=== PATIENT | male | born 1990 | race African-American/Black ===

== ENCOUNTER 2016-09-13 19:40 | Emergency (ER) | payer SELFPAY ==
--- NOTE | 2016-09-13 20:44 | RAD ---
PA AND LATERAL VIEWS OF CHEST: 09/13/2016 HISTORY: Cough for several years. FINDINGS: Two views of the chest demonstrate the lungs to be well-aerated. No evidence of active intrathoraci c disease seen. No evidence of effusions, pneumonia, or pneumothorax seen. IMPRESSION: Unremarkable two views chest. POS: [facility]
== END 2016-09-13 20:37 | disposition home or self-care (01) ==
LOC: NAV ERS 19:40
DX: J42 Unspecified chronic bronchitis (principal); F17.210 Nicotine dependence, cigarettes, uncomplicated
CPT/HCPCS: 71020

== ENCOUNTER 2016-11-24 22:13 | Emergency (ER) | payer SELFPAY ==
[2016-11-24] MEDS ORDERED: Amoxicillin/Potassium Clav 875 MG TAB ONE (22:24)
[2016-11-24] MEDS ORDERED: Ibuprofen 800 MG TAB ONE (22:25)
[2016-11-24] MEDS ORDERED: AMOXicillin 250 MG CAP ONE (22:25)
== END 2016-11-24 22:31 | disposition home or self-care (01) ==
LOC: NAV ERS 22:13
DX: H66.91 Otitis media, unspecified, right ear (principal); F17.210 Nicotine dependence, cigarettes, uncomplicated
CPT/HCPCS: 99282

== ENCOUNTER 2017-04-15 19:43 | Emergency (ER) | payer SELFPAY ==
[2017-04-15] MEDS ORDERED: Fluorescein Opthalmic Strip ONE (19:54)
[2017-04-15] MEDS ORDERED: Erythromycin Base 0.5% Oint 1 GM TUBE ONE (20:32)
[2017-04-15] MEDS ORDERED: Ibuprofen 800 MG TAB ONE (20:54)
== END 2017-04-15 21:05 | disposition home or self-care (01) ==
LOC: NAV ERS 19:43
DX: T15.02XA Foreign body in cornea, left eye, initial encounter (principal); I10 Essential (primary) hypertension; G62.9 Polyneuropathy, unspecified; F17.210 Nicotine dependence, cigarettes, uncomplicated
CPT/HCPCS: 65220

== ENCOUNTER 2017-08-17 01:52 | Emergency (ER) | payer SELFPAY | END 2017-08-17 02:10 | LOC: NAV ERS 01:52 | DX: F10.129 Alcohol abuse with intoxication, unspecified (principal); F17.210 Nicotine dependence, cigarettes, uncomplicated | CPT/HCPCS: 99284 ==

== ENCOUNTER 2017-08-19 18:35 | Emergency (ER) | payer SELFPAY ==
--- NOTE | 2017-08-19 19:20 | CT ---
CT HEAD WITHOUT CONTRAST: Date: 08/19/17 Multiple axial tomograms obtained through the head without IV contrast. HISTORY: Fall with injury to head and face. FINDINGS: Ventricles have normal size and position. No evidence of intracranial hemorrhage. No mass or infarct seen. Sinuses and mastoids are aerated. IMPRESSION: No acute findings. POS: [facility]
[2017-08-19 19:38] LABS: Bilirubin Negative (Negative); Blood, Urine Negative (Negative); Clarity Clear (Clear); Glucose, Urine (Dipstick) Negative (Negative); Leukocyte Negative (Negative); Nitrite Negative (Negative); Protein, Urine (Dipstick) Negative (Neg-Trace)
[2017-08-19 19:42] LABS: ALT (SGPT) 30 U/L (8-55); AST (SGOT) 23 U/L (5-34); Albumin 4.2 g/dL (3.5-5.0); Alcohol Less than 10 mg/dL (Less than 10); Alkaline Phosphatase 82 U/L (40-150); Anion Gap 14 mmol/L (10-20); BUN (Urea Nitrogen) 8 mg/dL (8.9-20.6); Calc. Creatinine Clearance 0 mL/min (70-130); Calcium 9.8 mg/dL (7.8-10.44); Carbon Dioxide 23 mmol/L (22-29); Chloride 108 mmol/L (98-107); Estimated GFR-MDRD Greater than 90; Globulin 3.1 g/dL (2.4-3.5); Glucose 103 mg/dL (70-105); Potassium 3.7 mmol/L (3.5-5.1); Protein, Total 7.3 g/dL (6.0-8.3); Sodium 141 mmol/L (136-145)
[2017-08-19 19:43] LABS: CKMB 1.6 ng/mL (0-6.6); Hemoglobin 15.1 g/dL (14.0-18.0); Mean Corpuscular HGB CONC 31.2 g/dL (32.0-36.0); Mean Corpuscular Hemoglobin 27.3 pg (27.0-31.0); Mean Corpuscular Volume 87.4 fl (80.0-94.0); Mean Platelet Volume 9.3 fL (7.4-10.4); Platelet Count 189 thou/uL (130-400); RBC Distribution Width 12.2 % (11.5-14.5); Red Blood Cell (RBC) Count 5.53 mill/uL (4.70-6.10); Troponin I Less than 0.010 ng/mL (< 0.028); White Blood Cell (WBC) Count 8.7 thou/uL (4.8-10.8)
[2017-08-19 19:47] LABS: THC/Cannabinoid Screen Detected (NotDetected)
[2017-08-19 19:47] LABS: Eosinophils 7 % (0-10); Lymphocytes 20 % (21-51); MDiff Complete? YES; Monocytes 6 % (0-10); Neutrophil 67 % (42-75); PLT Morphology Comment Appears Adequate; RBC Morphology Normal
[2017-08-19 19:48] LABS: Amphetamine Not Detected (NotDetected); Barbiturates Screen Not Detected (NotDetected); Benzodiazepine Screen Not Detected (NotDetected); Cocaine Metabolite Screen Not Detected (NotDetected); Medtox Control Line Valid? VALID (VALID); Methadone Not Detected (NotDetected); Methamphetamine Not Detected (NotDetected); Opiate Screen Not Detected (NotDetected); Oxycodone Screen Not Detected (NotDetected); Phencyclidine (PCP) Detected (NotDetected); Tricyclic Screen Not Detected (NotDetected)
[2017-08-19] MEDS ORDERED: Ibuprofen 800 MG TAB ONE (20:28)
== END 2017-08-19 20:57 | disposition short-term general hospital (02) ==
LOC: NAV ERS 18:35
DX: S02.5XXA Fracture of tooth (traumatic), initial encounter for closed fracture (principal); R41.82 Altered mental status, unspecified; F17.210 Nicotine dependence, cigarettes, uncomplicated; F12.20 Cannabis dependence, uncomplicated; W19.XXXA Unspecified fall, initial encounter
CPT/HCPCS: 70450; 80053; 80306; 80307; 81003; 82553; 84484; 85025; 93005

== ENCOUNTER 2018-03-15 03:42 | Emergency (ER) | payer SELFPAY ==
[2018-03-15 04:11] LABS: Bilirubin Negative (Negative); Blood, Urine Negative (Negative); Clarity Clear (Clear); Glucose, Urine (Dipstick) Negative (Negative); Leukocyte Negative (Negative); Nitrite Negative (Negative); Protein, Urine (Dipstick) 30 mg/dL (Neg-Trace); Specific Gravity, Urine 1.025 (1.005-1.030); Urobilinogen 0.2 mg/dL (0.2-1.0)
[2018-03-15 04:16] LABS: Bacteria/HPF None Seen HPF (None Seen); RBC/HPF None Seen HPF (0-3); Squamous Epithelial None Seen HPF (0-3); WBC/HPF 0-3 HPF (0-3)
== END 2018-03-15 04:25 | disposition home or self-care (01) ==
LOC: NAV ERS 03:42
DX: R10.30 Lower abdominal pain, unspecified (principal); R80.9 Proteinuria, unspecified; I10 Essential (primary) hypertension; F17.210 Nicotine dependence, cigarettes, uncomplicated
CPT/HCPCS: 81003; 81015; 99284

== ENCOUNTER 2018-11-03 01:49 | Emergency (ER) | payer SELFPAY ==
[2018-11-03] MEDS ORDERED: Lidocaine 1% (PF) 30 ML VIAL ONE (02:00)
[2018-11-03] MEDS ORDERED: Bacitracin Zinc 1 Packet ONE (02:56)
--- NOTE | 2018-11-03 07:44 | RAD ---
LEFT HAND 3 VIEWS: Date: 11/03/18 INDICATION: Left thumb injury. FINDINGS: There is palmar subluxation of the thumb metacarpophalangeal joint. There also appears to be fracture of the ulnar-most thumb sesamoid. There is soft tissue swelling surrounding the thumb. IMPRESSION: Findings suspicious for volar subluxation of the thumb metacarpophalangeal joint with prominent surro unding soft tissue swelling. There is also lucency involving the ulnar-most thumb metacarpophalangeal sesamoid consistent with fracture. No additional acute osseous abnormality is evident. POS: [facility]
== END 2018-11-03 03:06 | disposition home or self-care (01) ==
LOC: NAV ERS 01:49
DX: S61.411A Laceration without foreign body of right hand, initial encounter (principal); S61.012A Laceration without foreign body of left thumb without damage to nail, initial encounter; I10 Essential (primary) hypertension; F17.210 Nicotine dependence, cigarettes, uncomplicated; W26.8XXA Contact with other sharp object(s), not elsewhere classified, initial encounter
CPT/HCPCS: 12001; J2001

== ENCOUNTER 2018-11-28 09:44 | Emergency (ER) | payer SELFPAY | END 2018-11-28 10:17 | disposition home or self-care (01) | LOC: NAV ERS 09:44 | DX: S60.012A Contusion of left thumb without damage to nail, initial encounter (principal); F17.210 Nicotine dependence, cigarettes, uncomplicated; X50.9XXA Other and unspecified overexertion or strenuous movements or postures, initial encounter | CPT/HCPCS: 99281 ==

== ENCOUNTER 2019-06-07 00:59 | Emergency (ER) | payer SELFPAY | END 2019-06-07 01:35 | disposition home or self-care (01) | LOC: NAV ERS 00:59 | DX: J06.9 Acute upper respiratory infection, unspecified (principal); J45.909 Unspecified asthma, uncomplicated; F17.210 Nicotine dependence, cigarettes, uncomplicated; I10 Essential (primary) hypertension | CPT/HCPCS: 99281 ==

== ENCOUNTER 2019-06-14 09:35 | Emergency (ER) | payer SELFPAY ==
--- NOTE | 2019-06-14 10:24 | CT ---
EXAM: CT Facial Bones WO Con PROVIDED CLINICAL HISTORY: Face pain status post injury COMPARISON: None FINDINGS: Nondisplaced left-sided nasal bone fracture. No additional fracture is evident. Minimal mucosal thick ening involves the frontal sinus. The globes and other orbital contents appear unremarkable. IMPRESSION: Nondisplaced left-sided nasal bone fracture.
[2019-06-14] MEDS ORDERED: Bacitracin 1 PK ONE (10:45)
== END 2019-06-14 10:49 | disposition home or self-care (01) ==
LOC: NAV ERS 09:35
DX: S02.2XXA Fracture of nasal bones, initial encounter for closed fracture (principal); S00.212A Abrasion of left eyelid and periocular area, initial encounter; J45.909 Unspecified asthma, uncomplicated; I10 Essential (primary) hypertension; M17.0 Bilateral primary osteoarthritis of knee; F17.210 Nicotine dependence, cigarettes, uncomplicated; W55.22XA Struck by cow, initial encounter
CPT/HCPCS: 70486

== ENCOUNTER 2019-07-06 08:29 | Emergency (ER) | payer SELFPAY ==
--- NOTE | 2019-07-06 09:24 | RAD ---
Exam: Chest one view HISTORY:Fall. Comparison: 09/13/2016 FINDINGS: Cardiac silhouette: Normal Aorta: Unremarkable Pulmonary vessels: Normal Costophrenic angles: Clear LUNGS: No masses or consolidation. Pneumothorax: None Osseous abnormalities: None IMPRESSION: No acute cardiopulmonary process.
--- NOTE | 2019-07-06 09:36 | RAD ---
Exam: 3 views left RIBS HISTORY: Pain. COMPARISON: None FINDINGS: No fracture, cortical irregularity or periosteal reaction. IMPRESSION: No fracture.
== END 2019-07-06 10:04 | disposition home or self-care (01) ==
LOC: NAV ERS 08:29
DX: S20.212A Contusion of left front wall of thorax, initial encounter (principal); M17.0 Bilateral primary osteoarthritis of knee; J45.909 Unspecified asthma, uncomplicated; F17.210 Nicotine dependence, cigarettes, uncomplicated; X50.0XXA Overexertion from strenuous movement or load, initial encounter; Y93.72 Activity, wrestling
CPT/HCPCS: 71045; 93005

== ENCOUNTER 2020-05-14 23:32 | Emergency (ER) | payer SELFPAY ==
--- NOTE | 2020-05-15 00:12 | RAD ---
Portable frontal chest radiograph: 05/15/2020 COMPARISON: 07/06/2019 HISTORY: Cough FINDINGS: Lungs are clear. Heart and mediastinal contours appear within normal limits. Detailed asses sment is somewhat limited secondary to lordotic positioning and rotation to the right. Mild pulmonary vascular prominence noted with no focal consolidation or alveolar edema. IMPRESSION: No focal consolidation or alveolar edema.
[2020-05-15 22:45] LABS: SARS-CoV-2 MS2 Positive; SARS-CoV-2 N Gene Negative; SARS-CoV-2 S Gene Negative; SARS-CoV-2 by NAA Not Detected (NotDetected); SARS-CoV-2 orf1ab Negative
== END 2020-05-15 00:27 | disposition home or self-care (01) ==
LOC: NAV ERS 23:32
DX: R05 Cough (principal); Z20.828 Contact with and (suspected) exposure to other viral communicable diseases; J45.909 Unspecified asthma, uncomplicated; I10 Essential (primary) hypertension; F17.210 Nicotine dependence, cigarettes, uncomplicated
CPT/HCPCS: 71045; 87635; U0003

== ENCOUNTER 2020-11-04 16:12 | Emergency (ER) | payer BC ==
[2020-11-04] MEDS ORDERED: Ketorolac Tromethamine 60 MG/2 ML VIAL ONE (16:37)
== END 2020-11-04 17:20 | disposition home or self-care (01) ==
LOC: NAV ERS 16:12
DX: S53.402A Unspecified sprain of left elbow, initial encounter (principal); J45.909 Unspecified asthma, uncomplicated; Z79.51 Long term (current) use of inhaled steroids; F17.210 Nicotine dependence, cigarettes, uncomplicated
CPT/HCPCS: 71046; 96372; J1885

== ENCOUNTER 2021-03-10 13:17 | Emergency (ER) | payer BC | END 2021-03-10 14:22 | disposition home or self-care (01) | LOC: NAV ERS 13:17 | DX: L23.7 Allergic contact dermatitis due to plants, except food (principal); F17.210 Nicotine dependence, cigarettes, uncomplicated | CPT/HCPCS: 99282 ==

== ENCOUNTER 2021-12-15 10:17 | Emergency (ER) | payer BC, SELFPAY ==
[2021-12-15 10:56] LABS: ALT (SGPT) 29 U/L (8-55); AST (SGOT) 19 U/L (5-34); Albumin 4.2 g/dL (3.5-5.0); Alkaline Phosphatase 81 U/L (40-110); Anion Gap 18 mmol/L (10-20); BUN (Urea Nitrogen) 13 mg/dL (8.9-20.6); Bilirubin, Total 0.8 mg/dL (0.2-1.2); Calc. Creatinine Clearance 0 mL/min (70-130); Carbon Dioxide 20 mmol/L (22-29); Chloride 105 mmol/L (98-107); Globulin 2.4 g/dL (2.4-3.5); Glucose 145 mg/dL (70-105); Lipase 20 U/L (8-78); Potassium 3.6 mmol/L (3.5-5.1); Protein, Total 6.6 g/dL (6.0-8.3); Sodium 139 mmol/L (136-145)
[2021-12-15 11:00] LABS: Hemoglobin 13.7 g/dL (14.0-18.0); Mean Corpuscular Hemoglobin 27.8 pg (27.0-31.0); Mean Corpuscular Volume 92.8 fL (78.0-98.0); Mean Platelet Volume 8.9 fL (7.4-10.4); Platelet Count 207 thou/uL (130-400); RBC Distribution Width 12.6 % (11.5-14.5); Red Blood Cell (RBC) Count 4.92 mill/uL (4.70-6.10); White Blood Cell (WBC) Count 7.8 thou/uL (4.8-10.8)
[2021-12-15 11:01] LABS: Lymphocytes 28 % (21-51); MDiff Complete? YES; Monocytes 6 % (0-10); Neutrophil 66 % (42-75); Platelet Morphology Comment Appears Adequate
[2021-12-15] MEDS ORDERED: Ketorolac Tromethamine 30 MG/ML VIAL ONE (11:43)
== END 2021-12-15 12:20 | disposition home or self-care (01) ==
LOC: NAV ERS 10:17
DX: R07.89 Other chest pain (principal); J45.909 Unspecified asthma, uncomplicated; M17.0 Bilateral primary osteoarthritis of knee; F17.210 Nicotine dependence, cigarettes, uncomplicated
CPT/HCPCS: 71045; 80053; 83690; 84484; 85025; 93005; 94760; 96374; J1885

== ENCOUNTER 2022-01-02 07:05 | Emergency (ER) | payer SELFPAY | END 2022-01-02 07:55 | disposition home or self-care (01) | LOC: NAV ERS 07:05 | DX: K02.9 Dental caries, unspecified (principal); F17.210 Nicotine dependence, cigarettes, uncomplicated | CPT/HCPCS: 99282 ==

== ENCOUNTER 2022-01-04 10:25 | Emergency (ER) | payer SELFPAY ==
[2022-01-04] MEDS ORDERED: traMADol HCl 50 MG TAB ONE (10:48)
== END 2022-01-04 10:54 | disposition home or self-care (01) ==
LOC: NAV ERS 10:25
DX: K02.9 Dental caries, unspecified (principal); K03.81 Cracked tooth; H66.91 Otitis media, unspecified, right ear; F17.210 Nicotine dependence, cigarettes, uncomplicated
CPT/HCPCS: 99283

== ENCOUNTER 2022-03-14 10:15 | Emergency (ER) | payer SELFPAY | END 2022-03-14 10:55 | disposition home or self-care (01) | LOC: NAV ERS 10:15 | DX: K43.9 Ventral hernia without obstruction or gangrene (principal); F17.210 Nicotine dependence, cigarettes, uncomplicated | CPT/HCPCS: 99283 ==

== ENCOUNTER 2022-06-22 14:31 | Emergency (ER) | payer OTHER, SELFPAY ==
[2022-06-22] MEDS ORDERED: Lidocaine 1% (PF) 30 ML VIAL ONE (14:47)
[2022-06-22] MEDS ORDERED: Morphine 4 MG/ML VIAL ONE ×2 (14:49→16:13)
[2022-06-22] MEDS ORDERED: Ondansetron ODT 4 MG TAB ONE (14:50)
[2022-06-22 15:01] LABS: #Basophils 0.1 thou/uL (0.0-0.2); #Eosinphils 0.4 thou/uL (0.0-0.7); #Lymphocytes 3.2 thou/uL (1.20-3.40); #Monocytes 0.7 thou/uL (0.11-0.59); #Neutrophils 4.7 thou/uL (1.40-6.50); %Basophils 1.6 % (0.0-1.0); %Lymphocytes 35.7 % (21.0-51.0); %Monocytes 7.3 % (0.0-10.0); %Neutrophils 51.5 % (42.0-75.0); Hemoglobin 15.1 g/dL (14.0-18.0); Mean Corpuscular HGB CONC 30.9 g/dL (32.0-36.0); Mean Corpuscular Hemoglobin 28.2 pg (27.0-31.0); Mean Corpuscular Volume 91.1 fl (78.0-98.0); Platelet Count 238 10x3/uL (130-400); RBC Distribution Width 12.5 % (11.5-14.5); Red Blood Cell (RBC) Count 5.35 mill/uL (4.70-6.10)
[2022-06-22 15:14] LABS: PTT 25.8 sec (22.9-36.1); Prothrombin Time 13.2 sec (12.0-14.7)
[2022-06-22] MEDS ORDERED: Sodium Chloride 0.9% 0 ML ONE (15:17)
[2022-06-22] MEDS ORDERED: CEFAZOLIN 1 GM VIAL ONE (15:17)
[2022-06-22] MEDS ORDERED: Sodium Chloride 0.9% 100 ML ONE (15:17)
[2022-06-22 15:22] LABS: ALT (SGPT) 32 U/L (8-55); AST (SGOT) 24 U/L (5-34); Albumin 4.1 g/dL (3.5-5.0); Alkaline Phosphatase 89 U/L (40-110); Anion Gap 15 mmol/L (10-20); BUN (Urea Nitrogen) 15 mg/dL (8.9-20.6); Bilirubin, Total 0.8 mg/dL (0.2-1.2); Calc. Creatinine Clearance 0 mL/min (70-130); Calcium 9.4 mg/dL (7.8-10.44); Carbon Dioxide 24 mmol/L (22-29); Chloride 107 mmol/L (98-107); Estimated GFR 64; Globulin 3.5 g/dL (2.4-3.5); Glucose 90 mg/dL (70-105); Potassium 4.3 mmol/L (3.5-5.1); Protein, Total 7.6 g/dL (6.0-8.3); Sodium 142 mmol/L (136-145)
== END 2022-06-22 16:23 | disposition short-term general hospital (02) ==
LOC: NAV ERS 14:31
DX: S68.116A Complete traumatic metacarpophalangeal amputation of right little finger, initial encounter (principal); Z23 Encounter for immunization; F17.210 Nicotine dependence, cigarettes, uncomplicated; W23.0XXA Caught, crushed, jammed, or pinched between moving objects, initial encounter
CPT/HCPCS: 36415; 64450; 80053; 85025; 85610; 85730; 90471; 96365; 96375; 96376; J0690; J2001; J2270; J3490; Q0162

== ENCOUNTER 2022-06-28 18:37 | Emergency (ER) | payer SELFPAY | END 2022-06-28 21:12 | disposition home or self-care (01) | LOC: NAV ERS 18:37 | DX: S61.306A Unspecified open wound of right little finger with damage to nail, initial encounter (principal); F17.210 Nicotine dependence, cigarettes, uncomplicated; X58.XXXA Exposure to other specified factors, initial encounter | CPT/HCPCS: 99283 ==

== ENCOUNTER 2022-08-21 10:37 | Emergency (ER) | payer SELFPAY ==
[2022-08-21 11:25] LABS: #Eosinphils 0.3 thou/uL (0.0-0.7); #Lymphocytes 1.6 thou/uL (1.20-3.40); #Monocytes 0.5 thou/uL (0.11-0.59); #Neutrophils 3.1 thou/uL (1.40-6.50); %Basophils 0.9 % (0.0-1.0); %Eosinophils 5.4 % (0.0-10.0); %Lymphocytes 29.1 % (21.0-51.0); %Monocytes 8.6 % (0.0-10.0); %Neutrophils 56.2 % (42.0-75.0); Hemoglobin 14.7 g/dL (14.0-18.0); Mean Corpuscular HGB CONC 30.7 g/dL (32.0-36.0); Mean Corpuscular Hemoglobin 28.2 pg (27.0-31.0); Mean Corpuscular Volume 91.9 fl (78.0-98.0); Mean Platelet Volume 8.2 fL (7.4-10.4); Platelet Count 207 10x3/uL (130-400); RBC Distribution Width 14.1 % (11.5-14.5); Red Blood Cell (RBC) Count 5.22 mill/uL (4.70-6.10); White Blood Cell (WBC) Count 5.5 10x3/uL (4.8-10.8)
[2022-08-21 11:40] LABS: ALT (SGPT) 25 U/L (8-55); AST (SGOT) 21 U/L (5-34); Alkaline Phosphatase 82 U/L (40-110); Anion Gap 12 mmol/L (10-20); BUN (Urea Nitrogen) 11 mg/dL (8.9-20.6); Bilirubin, Total 0.5 mg/dL (0.2-1.2); Calc. Creatinine Clearance 0 mL/min (70-130); Calcium 8.9 mg/dL (7.8-10.44); Carbon Dioxide 24 mmol/L (22-29); Chloride 108 mmol/L (98-107); Estimated GFR 75; Globulin 2.8 g/dL (2.4-3.5); Glucose 94 mg/dL (70-105); Lipase 21 U/L (8-78); Potassium 4.2 mmol/L (3.5-5.1); Protein, Total 6.8 g/dL (6.0-8.3); Sodium 140 mmol/L (136-145)
[2022-08-21 12:36] LABS: Amphetamine Not Detected (NotDetected); Barbiturates Screen Not Detected (NotDetected); Benzodiazepine Screen Not Detected (NotDetected); Bilirubin Negative (Negative); Blood, Urine Negative (Negative); Clarity Clear (Clear); Cocaine Metabolite Screen Detected (NotDetected); Glucose, Urine (Dipstick) Negative (Negative); Ketone, Urine Negative (Negative); Leukocyte Negative (Negative); Medtox Control Line Valid? VALID (VALID); Methadone Not Detected (NotDetected); Methamphetamine Not Detected (NotDetected); Nitrite Negative (Negative); Opiate Screen Not Detected (NotDetected); Oxycodone Screen Not Detected (NotDetected); Phencyclidine (PCP) Detected (NotDetected); Protein, Urine (Dipstick) Negative (Neg-Trace); THC/Cannabinoid Screen Detected (NotDetected); Tricyclic Screen Not Detected (NotDetected); Urobilinogen 0.2 mg/dL (Less than 2); pH, Urine 5.5 (5.0-9.0)
== END 2022-08-21 13:10 | disposition home or self-care (01) ==
LOC: NAV ERS 10:37
DX: S29.011A Strain of muscle and tendon of front wall of thorax, initial encounter (principal); F17.210 Nicotine dependence, cigarettes, uncomplicated; X50.1XXA Overexertion from prolonged static or awkward postures, initial encounter; J45.909 Unspecified asthma, uncomplicated
CPT/HCPCS: 36415; 71045; 80053; 80306; 81003; 83690; 84484; 85025; 93005

== ENCOUNTER 2022-10-16 09:36 | Emergency (ER) | payer BC, SELFPAY ==
[2022-10-16] MEDS ORDERED: Ipratropium/Albuterol 3 ML NEB ONE (09:56)
[2022-10-16 10:15] LABS: #Basophils 0.1 thou/uL (0.0-0.2); #Eosinphils 0.4 thou/uL (0.0-0.7); #Lymphocytes 1.9 thou/uL (1.20-3.40); #Monocytes 0.4 thou/uL (0.11-0.59); #Neutrophils 4.6 thou/uL (1.40-6.50); %Basophils 1.1 % (0.0-1.0); %Eosinophils 4.8 % (0.0-10.0); %Lymphocytes 26.3 % (21.0-51.0); %Monocytes 5.1 % (0.0-10.0); %Neutrophils 62.8 % (42.0-75.0); Hemoglobin 14.8 g/dL (14.0-18.0); Mean Corpuscular HGB CONC 30.7 g/dL (32.0-36.0); Mean Corpuscular Hemoglobin 28.1 pg (27.0-31.0); Mean Corpuscular Volume 91.4 fl (78.0-98.0); Mean Platelet Volume 8.1 fL (7.4-10.4); Platelet Count 193 10x3/uL (130-400); RBC Distribution Width 13.3 % (11.5-14.5); Red Blood Cell (RBC) Count 5.27 mill/uL (4.70-6.10); White Blood Cell (WBC) Count 7.3 10x3/uL (4.8-10.8)
[2022-10-16 10:34] LABS: ALT (SGPT) 31 U/L (8-55); AST (SGOT) 27 U/L (5-34); Albumin 4.1 g/dL (3.5-5.0); Alkaline Phosphatase 83 U/L (40-110); Anion Gap 16 mmol/L (10-20); BUN (Urea Nitrogen) 11 mg/dL (8.9-20.6); Bilirubin, Total 0.5 mg/dL (0.2-1.2); Calc. Creatinine Clearance 0 mL/min (70-130); Calcium 8.8 mg/dL (7.8-10.44); Carbon Dioxide 20 mmol/L (22-29); Chloride 106 mmol/L (98-107); Estimated GFR 77; Globulin 3.3 g/dL (2.4-3.5); Glucose 113 mg/dL (70-105); Protein, Total 7.4 g/dL (6.0-8.3); Sodium 138 mmol/L (136-145)
[2022-10-16 11:27] LABS: Bilirubin Negative (Negative); Blood, Urine Negative (Negative); Clarity Clear (Clear); Glucose, Urine (Dipstick) Negative (Negative); Ketone, Urine Negative (Negative); Leukocyte Negative (Negative); Nitrite Negative (Negative); Protein, Urine (Dipstick) Negative (Neg-Trace); Specific Gravity, Urine 1.015 (1.005-1.030); Urobilinogen 0.2 mg/dL (Less than 2); pH, Urine 6.5 (5.0-9.0)
[2022-10-16 11:44] LABS: Cocaine Metabolite Screen Detected (NotDetected); Phencyclidine (PCP) Detected (NotDetected); THC/Cannabinoid Screen Not Detected (NotDetected)
[2022-10-16 11:45] LABS: Amphetamine Not Detected (NotDetected); Barbiturates Screen Not Detected (NotDetected); Benzodiazepine Screen Not Detected (NotDetected); Methadone Not Detected (NotDetected); Methamphetamine Not Detected (NotDetected); Opiate Screen Not Detected (NotDetected); Oxycodone Screen Not Detected (NotDetected); Tricyclic Screen Not Detected (NotDetected)
== END 2022-10-16 11:18 | disposition home or self-care (01) ==
LOC: NAV ERS 09:36
DX: J45.901 Unspecified asthma with (acute) exacerbation (principal); I10 Essential (primary) hypertension; F17.210 Nicotine dependence, cigarettes, uncomplicated; M19.90 Unspecified osteoarthritis, unspecified site
CPT/HCPCS: 71046; 80053; 80306; 81003; 84484; 85025; 93005; 94640; J7620

== ENCOUNTER 2022-11-02 11:24 | Emergency (ER) | payer BC ==
[2022-11-02] MEDS ORDERED: Ibuprofen 800 MG TAB ONE (12:23)
== END 2022-11-02 12:28 | disposition home or self-care (01) ==
LOC: NAV ERS 11:24
DX: M17.11 Unilateral primary osteoarthritis, right knee (principal); I10 Essential (primary) hypertension; F17.210 Nicotine dependence, cigarettes, uncomplicated

== ENCOUNTER 2024-07-23 06:52 | Emergency (ER) | payer BC, SELFPAY | END 2024-07-23 07:31 | disposition home or self-care (01) | LOC: NAV ERS 06:52 | DX: L01.00 Impetigo, unspecified (principal); I10 Essential (primary) hypertension; F17.210 Nicotine dependence, cigarettes, uncomplicated | CPT/HCPCS: 99282 ==

== ENCOUNTER 2025-03-10 13:09 | Emergency (ER) | payer OTHER | END 2025-03-10 14:15 | disposition home or self-care (01) | LOC: NAV ERS 13:09 | DX: K13.79 Other lesions of oral mucosa (principal); I10 Essential (primary) hypertension; J45.909 Unspecified asthma, uncomplicated; F17.210 Nicotine dependence, cigarettes, uncomplicated; Z79.51 Long term (current) use of inhaled steroids | CPT/HCPCS: 99283 ==

== ENCOUNTER 2025-03-12 06:49 | Emergency (ER) | payer OTHER ==
[2025-03-12] MEDS ORDERED: Ketorolac Tromethamine 30 MG (1 mL) VIAL ONE (07:28)
[2025-03-12] MEDS ORDERED: Iopamidol 370 76% 100 ML VIAL ONE (09:00)
== END 2025-03-12 09:05 | disposition home or self-care (01) ==
LOC: NAV ERS 06:49
DX: K62.89 Other specified diseases of anus and rectum (principal); R03.0 Elevated blood-pressure reading, without diagnosis of hypertension; I10 Essential (primary) hypertension; F17.210 Nicotine dependence, cigarettes, uncomplicated; J45.909 Unspecified asthma, uncomplicated; Z79.51 Long term (current) use of inhaled steroids
CPT/HCPCS: 74177; 96374; J1885; Q9967

== ENCOUNTER 2025-03-24 14:16 | Emergency (ER) | payer OTHER | END 2025-03-24 15:05 | disposition home or self-care (01) | LOC: NAV ERS 14:16 | DX: S91.202A Unspecified open wound of left great toe with damage to nail, initial encounter (principal); J45.909 Unspecified asthma, uncomplicated; K43.9 Ventral hernia without obstruction or gangrene; L73.9 Follicular disorder, unspecified; F17.210 Nicotine dependence, cigarettes, uncomplicated; Z79.51 Long term (current) use of inhaled steroids; X58.XXXA Exposure to other specified factors, initial encounter | CPT/HCPCS: 99283 ==

== ENCOUNTER 2025-06-09 17:06 | Emergency (ER) | payer OTHER ==
[2025-06-09] MEDS ORDERED: predniSONE 20 MG TAB ONE (19:08)
== END 2025-06-09 19:13 | disposition home or self-care (01) ==
LOC: NAV ERS 17:06
DX: J45.909 Unspecified asthma, uncomplicated (principal); J06.9 Acute upper respiratory infection, unspecified; B97.89 Other viral agents as the cause of diseases classified elsewhere; I10 Essential (primary) hypertension; F17.210 Nicotine dependence, cigarettes, uncomplicated; Z79.899 Other long term (current) drug therapy
CPT/HCPCS: 71046; 87428; 94640; 94664; 94760; J7512